=== PATIENT | male | born 1940 | race Caucasian/White ===

== ENCOUNTER 2016-11-15 20:46 | Day surgery (SDCO) | payer MEDICARE, OTHER ==
[~2016-11-15] VITALS: Ht 175.3 cm; Wt 86.2 kg
[2016-11-15 21:15] LABS: BASOPHIL 0.5 % (0-2); EOSINOPHIL 2.8 % (0-7); HCT 45.4 % (42.0-52.0); HGB 15.4 g/dl (13.2-18.0); LYMPHOCYTE 16.4 % (15-48); MCHC 33.9 g/dL (32.0-36.0); MCV 82.5 fL (78.0-100.0); MONOCYTE 10.5 % (0-12); MPV 11.5 fL (6.0-9.5); NEUTROPHIL 69.8 % (41-80); PLT 190 K/uL (150-400); RDW 15.1 % (11.5-14.0); WBC 10.8 K/uL (4.0-10.5)
[2016-11-15 21:35] LABS: ALBUMIN 4.2 g/dL (3.4-4.8); BILIRUBIN - TOTAL 0.8 mg/dL (0.1-1.0); CREATININE 1.4 mg/dL (0.7-1.2); GLOBULIN (CALCULATION) 2.7 g/dL (2.2-4.2); POTASSIUM 3.7 mmol/L (3.5-5.1); TOTAL PROTEIN 6.9 g/dL (6.4-8.3)
[2016-11-16 00:46] LABS: BILIRUBIN NEGATIVE (NEGATIVE); BLOOD NEGATIVE Ery/uL (NEGATIVE); CLARITY CLEAR (CLEAR); COLOR YELLOW (YELLOW); GLUCOSE (U) NORMAL (NORMAL); KETONE (U) TRACE mg/dL (NEGATIVE); LEUKOCYTES NEGATIVE Leu/uL (NEGATIVE); NITRITE NEGATIVE (NEGATIVE); PROTEIN 1+ mg/dL (NEGATIVE); SPECIFIC GRAVITY >=1.030 (1.001-1.030); UROBILINOGEN 0.2 mg/dL (0.2-1.0); pH 5.5 (5.0-9.0)
[2016-11-16 00:51] LABS: BACTERIA 1+; MUCOUS TRACE; SQUAMOUS EPITHELIAL CELLS RARE
[2016-11-17 03:29] LABS: HCT 44.4 % (42.0-52.0); HGB 14.7 g/dl (13.2-18.0); MCH 27.9 pg (25.0-31.0); MCHC 33.1 g/dL (32.0-36.0); MCV 84.3 fL (78.0-100.0); MPV 11.9 fL (6.0-9.5); RBC 5.27 M/uL (4.70-6.00); RDW 15.1 % (11.5-14.0); WBC 7.6 K/uL (4.0-10.5)
[2016-11-17 03:49] LABS: CREATININE 1.7 mg/dL (0.7-1.2); POTASSIUM 4.4 mmol/L (3.5-5.1)
[2016-11-18 03:30] LABS: HCT 41.6 % (42.0-52.0); HGB 13.7 g/dl (13.2-18.0); MCH 28.1 pg (25.0-31.0); MCHC 32.9 g/dL (32.0-36.0); MCV 85.2 fL (78.0-100.0); MPV 11.9 fL (6.0-9.5); RBC 4.88 M/uL (4.70-6.00); RDW 14.9 % (11.5-14.0); WBC 7.7 K/uL (4.0-10.5)
[2016-11-18 03:46] LABS: CREATININE 1.5 mg/dL (0.7-1.2); POTASSIUM 4.6 mmol/L (3.5-5.1)
[2016-11-19 05:26] LABS: HCT 39.7 % (42.0-52.0); HGB 13.3 g/dl (13.2-18.0); MCH 28.2 pg (25.0-31.0); MCHC 33.5 g/dL (32.0-36.0); MCV 84.1 fL (78.0-100.0); MPV 11.6 fL (6.0-9.5); RBC 4.72 M/uL (4.70-6.00); RDW 14.5 % (11.5-14.0); WBC 7.6 K/uL (4.0-10.5)
[2016-11-19 05:39] LABS: CREATININE 1.2 mg/dL (0.7-1.2); POTASSIUM 3.4 mmol/L (3.5-5.1)
[2016-11-19] MEDS ORDERED: PRILOSEC20 MG PO (11:55)
[2016-11-19] MEDS ORDERED: FLONASE ALLER15.8 ML (11:55)
[2016-11-19] MEDS ORDERED: MEGA BIOTIN10000 MCG PO (11:56)
[2016-11-19] MEDS ORDERED: CELEXA20 MG PO (11:56)
[2016-11-19] MEDS ORDERED: ASCORBIC ACID500 MG PO (11:56)
[2016-11-19] MEDS ORDERED: CARDIZEM CD120 MG PO (11:56)
[2016-11-19] MEDS ORDERED: NEURONTIN300 MG PO (11:57)
[2016-11-19] MEDS ORDERED: HCTZ12.5 MG PO (11:58)
[2016-11-19] MEDS ORDERED: PREVACID30 M1 PO (11:58)
[2016-11-19] MEDS ORDERED: PLAQUENIL200 MG PO (11:58)
[2016-11-19] MEDS ORDERED: OCUVITE SOFTGE1 EACH PO (11:59)
[2016-11-19] MEDS ORDERED: CERTAGEN1 EACH PO (11:59)
[2016-11-19] MEDS ORDERED: NAPROSYN250 MG PO (12:00)
[2016-11-19] MEDS ORDERED: REQUIP0.25 MG PO (12:00)
== END 2016-11-19 13:18 | disposition home or self-care (01) ==
LOC: FER 20:46 → FMS 11-16 02:25
PROVIDERS: Emergency Medicine Emergency Medical Services; ADMIT Internal Medicine
DX: K56.60 Unspecified intestinal obstruction (principal); I10 Essential (primary) hypertension; G25.81 Restless legs syndrome; K21.9 Gastro-esophageal reflux disease without esophagitis; K57.92 Diverticulitis of intestine, part unspecified, without perforation or abscess without bleeding; N17.9 Acute kidney failure, unspecified; M06.9 Rheumatoid arthritis, unspecified; F32.9 Major depressive disorder, single episode, unspecified; Z98.52 Vasectomy status; Z90.79 Acquired absence of other genital organ(s); Z96.653 Presence of artificial knee joint, bilateral; Z88.5 Allergy status to narcotic agent; Z88.0 Allergy status to penicillin; Z88.2 Allergy status to sulfonamides; Z85.828 Personal history of other malignant neoplasm of skin; Z79.51 Long term (current) use of inhaled steroids; Z79.1 Long term (current) use of non-steroidal anti-inflammatories (NSAID); Z79.899 Other long term (current) drug therapy; Z98.890 Other specified postprocedural states
CPT/HCPCS: 36415; 74000; 74022; 80048; 80053; 81001; 83605; 85025; 87040; 93005; 94010; G0378; J1170; J1956; J2405

== ENCOUNTER 2020-10-16 19:40 | Emergency (ER) | payer MEDICARE, OTHER ==
[~2020-10-16 19:40] MED LIST: ASCORBIC ACID500 MG PO; CARDIZEM CD120 MG PO; CELEXA20 MG PO; CERTAGEN1 EACH PO; FLONASE ALLER15.8 ML; HCTZ12.5 MG PO; MEGA BIOTIN10000 MCG PO; NAPROSYN250 MG PO; NEURONTIN300 MG PO; OCUVITE SOFTGE1 EACH PO; PLAQUENIL200 MG PO; PREVACID30 M1 PO; PRILOSEC20 MG PO; REQUIP0.25 MG PO
[2020-10-16 20:32] LABS: BASOPHIL 0.5 % (0-2); EOSINOPHIL 1.7 % (0-7); HCT 39.9 % (42.0-52.0); HGB 13.4 g/dl (13.2-18.0); LYMPHOCYTE 22.6 % (15-48); MCH 29.7 pg (25.0-31.0); MCHC 33.6 g/dL (32.0-36.0); MCV 88.5 fL (78.0-100.0); MONOCYTE 8.8 % (0-12); MPV 11.1 fL (6.0-9.5); NEUTROPHIL 65.8 % (41-80); NRBC 0; PLT 185 K/uL (150-400); RBC 4.51 M/uL (4.70-6.00); RDW 14.4 % (11.5-14.0); WBC 9.9 K/uL (4.0-10.5)
[2020-10-16 20:44] LABS: ALBUMIN 3.7 g/dL (3.4-5.0); BILIRUBIN - TOTAL 0.6 mg/dL (0.2-1.0); BUN/CREAT RATIO (CALC) 21.6 RATIO; CREATININE 1.25 mg/dL (0.67-1.17); GLOBULIN (CALCULATION) 3.1 g/dL; POTASSIUM 4.7 mmol/L (3.5-5.1); TOTAL PROTEIN 6.8 g/dL (6.4-8.2)
== END 2020-10-17 00:55 | disposition other institution (70) ==
LOC: FER 19:40
PROVIDERS: Emergency Medicine
DX: I21.4 Non-ST elevation (NSTEMI) myocardial infarction (principal); Z85.46 Personal history of malignant neoplasm of prostate; Z88.0 Allergy status to penicillin; Z88.2 Allergy status to sulfonamides; Z88.5 Allergy status to narcotic agent; Z87.891 Personal history of nicotine dependence
CPT/HCPCS: 36415; 71045; 80053; 82150; 83690; 84484; 85025; 93005; J1650

== ENCOUNTER 2021-02-27 13:49 | Emergency (ER) | payer MEDICARE, OTHER ==
[2021-02-27 14:30] LABS: ALBUMIN 2.3 g/dL (3.4-5.0); BILIRUBIN - TOTAL 0.4 mg/dL (0.2-1.0); BUN/CREAT RATIO (CALC) 28.4 RATIO; CREATININE 0.74 mg/dL (0.67-1.17); GLOBULIN (CALCULATION) 3.1 g/dL; TOTAL PROTEIN 5.4 g/dL (6.4-8.2)
[2021-02-27 14:53] LABS: BASOPHIL 0.6 % (0-2); HCT 32.1 % (42.0-52.0); HGB 10.2 g/dl (13.2-18.0); LYMPHOCYTE 13.3 % (15-48); MCH 29.7 pg (25.0-31.0); MCHC 31.8 g/dL (32.0-36.0); MCV 93.6 fL (78.0-100.0); MONOCYTE 8.7 % (0-12); NEUTROPHIL 74.4 % (41-80); NRBC 0; PLT 227 K/uL (150-400); RBC 3.43 M/uL (4.70-6.00); WBC 15.7 K/uL (4.0-10.5)
[2021-02-27] MEDS ORDERED: CEPHALEXIN500 MG PO (17:08)
[2021-02-27] MEDS ORDERED: PREDNISONE 20MG20 MG PO (17:11)
== END 2021-02-27 18:20 | disposition home or self-care (01) ==
LOC: FER 13:49
PROVIDERS: Internal Medicine
DX: M06.842 Other specified rheumatoid arthritis, left hand (principal); R07.89 Other chest pain; I25.2 Old myocardial infarction; I10 Essential (primary) hypertension; Z88.0 Allergy status to penicillin; Z88.2 Allergy status to sulfonamides; Z88.6 Allergy status to analgesic agent
CPT/HCPCS: 36415; 71045; 73130; 80053; 84484; 84550; 85025; 93005; 96372; J1170